=== PATIENT | female | born 1985 | race Caucasian/White ===

== ENCOUNTER 2018-06-01 21:50 | Emergency (ER) | payer BC, OTHER ==
[2018-06-01 21:58] VITALS: BMI 29.8
[2018-06-01 22:54] LABS: URINE APPEARANCE CLEAR; URINE BILIRUBIN NEGATIVE (<2.0 mg/dL); URINE COLOR YELLOW; URINE GLUCOSE (UA) NEGATIVE (NEGATIVE); URINE KETONE NEGATIVE (NEGATIVE); URINE LEUK ESTERASE NEGATIVE (NEGATIVE); URINE NITRITE NEGATIVE (NEGATIVE); URINE PROTEIN NEGATIVE (NEGATIVE); URINE UROBILINOGEN NEGATIVE mg/dL (0.2-1.0)
[2018-06-01 23:36] VITALS: BP 120/69; TEMP 98.6
[2018-06-01 23:44] VITALS: PULSE 104
== END 2018-06-01 23:10 | disposition home or self-care (01) ==
LOC: JER 21:50
DX: O26.892 Other specified pregnancy related conditions, second trimester (principal); Z3A.25 25 weeks gestation of pregnancy
CPT/HCPCS: 81003; 99281-25

== ENCOUNTER 2018-09-21 17:40 | Inpatient (IN) | payer BC, OTHER ==
[2018-09-21 18:39] VITALS: BMI 34.0
[2018-09-21] MEDS ORDERED: TUBERCULIN PPD 5 TU/0.1ML SYRINGE (IN PATIENT USE ONLY) ID ONE (19:00)
[2018-09-21 19:34] LABS: BASO % 0.2 % (0-2.0); EOS % 0.9 % (0-4.5); HEMATOCRIT 34.2 % (32.4-45.2); LYMPH % 25.5 % (8-40); MCH 29.4 pg (25.7-33.7); MEAN PLT VOLUME 8.6 fl (7.5-11.1); MONO % 5.1 % (3.8-10.2); NEUT % 68.3 % (42.8-82.8); PLATELET COUNT 275 K/MM3 (134-434); RBC 4.07 M/mm3 (3.60-5.2); RDW 15.6 % (11.6-15.6); WHITE BLOOD COUNT 7.8 K/mm3 (4.0-10.0)
[2018-09-21 20:05] LABS: ANION GAP 9 MMOL/L (8-16); BLOOD UREA NITROGEN 9 mg/dL (7-18); CALCIUM 8.3 mg/dL (8.5-10.1); CHLORIDE 104 mmol/L (98-107); CO2 24 mmol/L (21-32); CREATININE 0.5 mg/dL (0.55-1.3); GLUCOSE,RANDOM 95 mg/dL (74-106); POTASSIUM 4.1 mmol/L (3.5-5.1); SODIUM 137 mmol/L (136-145)
[2018-09-21 20:24] LABS: INR 0.88 (0.83-1.09); PROTHROMBIN TIME (PATIENT) 10.4 SEC (9.7-13.0)
[2018-09-21] MEDS ORDERED: BUTORPHANOL TARTRATE 1 MG/ML VIAL IVPB ONE (21:32)
[2018-09-21] MEDS ORDERED: DINOPROSTONE 10 MG VAGINAL SUPPOSITORY VG ONE (21:34)
--- NOTE | 2018-09-21 21:40 | HP ---
Past Medical History - Primary Care Physician PCP:: Abeba Tavarez - Admission History Source: Patient Limitations to Obtaining History: No Limitations - Past Medical History ...: 1 ...Para: 0 ...Term: 0 ...: 0 ...Spon : 0 ...Induced : 0 ...Multiple Gestation: 0 ...LMP: 12/05/17 ... Weeks Gestation by Dates: 41.3 ...EDC by Dates: 09/11/18 ...EDC by Sono: 09/11/18 - Past Surgical History Past Surgical History: Yes: None Hx Myomectomy: No Hx Transabdominal Cerclage: No - Smoking History Smoking history: Never smoked Have you smoked in the past 12 months: No - Alcohol/Substance Use Hx Alcohol Use: No History of Substance Use: reports: None - Social History Usual Living Arrangement: Yes: With Spouse History of Recent Travel: No Home Medications - Allergies Allergies/Adverse Reactions: Allergies Allergy/AdvReac Type Severity Reaction Status Date / Time No Known Allergies Allergy Verified 09/21/18 18:06 - Home Medications Home Medications: Ambulatory Orders Vits96/Iron Fum/Folic [ Tablet] 1 each PO DAILY 09/21/18 Review of Systems - Review of Systems Constitutional: reports: No Symptoms Eyes: reports: No Symptoms HENT: reports: No Symptoms Neck: reports: No Symptoms Cardiovascular: reports: No Symptoms Respiratory: reports: No Symptoms Gastrointestinal: reports: No Symptoms Genitourinary: reports: No Symptoms Breasts: reports: No Symptoms Reported Musculoskeletal: reports: No Symptoms Integumentary: reports: No Symptoms Neurological: reports: No Symptoms Endocrine: reports: No Symptoms Hematology/Lymphatic: reports: No Symptoms Psychiatric: reports: No Symptoms Physical Exam - Maternity Vital Signs: Vital Signs Temperature 97.9 F 09/21/18 18:00 Pulse Rate 98 H 09/21/18 18:00 Respiratory Rate 18 09/21/18 18:00 Blood Pressure 126/79 09/21/18 18:00 O2 Sat by Pulse Oximetry (%) Constitutional: Yes: Well Nourished, No Distress Neck: Yes: WNL Cardiovascular: Yes: WNL, Regular Rate and Rhythm Lungs: Clear to auscultation Breast(s): Yes: WNL - Abdominal Exam/OB Fundal Height: 41 Number of Fetuses: Single Presentation: Vertex Contractions: No Monitor Mode: External Category: I Decelerations: None - Vaginal Exam/OB Dilatation (cm): 1 cm Effacement (%): 70 Amniotic Membrane Status: Intact Station: -1 - Physical Exam Musculoskeletal: Yes: WNL Extremities: Yes: WNL Psychiatric: Yes: WNL, Alert, Oriented - Labs Lab Results: CBC, BMP 09/21/18 19:00 09/21/18 19:00 Hemorrhage Risk Assessment - Risk Factors Risk Score: 1 Risk Level: Medium Risk Problem List - Problems (1) Post-dates Code(s): O48.0 - POST-TERM (2) 41 weeks gestation of Code(s): Z3A.41 - 41 WEEKS GESTATION OF Assessment/Plan IUP at 41 weeks postdates Plan cervidil
[2018-09-21] MEDS: ELECTROLYTE-148 SOLN 1,000 ML IV SCH (22:00)
[2018-09-22] MEDS: ELECTROLYTE-148 SOLN 1,000 ML IV SCH ×5 (01:00→17:38)
[2018-09-22] MEDS ORDERED: BUTORPHANOL TARTRATE 1 MG/ML VIAL ONE ×2 (02:34)
[2018-09-22] MEDS ORDERED: PROMETHAZINE HCL 25 MG/1 ML VIAL ONE (02:34)
[2018-09-22] MEDS ORDERED: PROMETHAZINE HCL 25 MG/1 ML VIAL IVPB ONE (02:45)
[2018-09-22] MEDS ORDERED: AMPICILLIN SODIUM 2 GM VIAL ONE (02:48)
[2018-09-22] MEDS ORDERED: AMPICILLIN - 2 GM in SODIUM CHLORIDE 100 ML IVPB ONE (03:00)
[2018-09-22] MEDS ORDERED: AMPICILLIN SODIUM 1 GM VIAL ONE ×5 (06:08→23:12)
[2018-09-22] MEDS: AMPICILLIN - 1 GM in SODIUM CHLORIDE 100 ML IVPB SCH ×5 (06:38→23:00)
[2018-09-22] MEDS ORDERED: FENTANYL/BUPIVACAINE/NS/PF - PCEA - 50 ML DISP.SYRIN EP ONE ×3 (10:31→21:05)
--- NOTE | 2018-09-22 10:55 | PN ---
Ante-Partal Exam - Subjective Subjective: Pt uncomfortable with contractions, desires epidural. Vital Signs: Vital Signs Temperature 98.4 F 09/22/18 10:00 Pulse Rate 78 09/22/18 10:00 Respiratory Rate 20 09/22/18 10:00 Blood Pressure 125/79 09/22/18 10:00 O2 Sat by Pulse Oximetry (%) Bleeding: No Headache: No Visual changes: No Right upper quadrant pain: No Pain (scale 1-10): 9 - Contractions Contractions: Yes Regularity: Regular Intensity: Moderate Monitor Mode: External - Exam during Labor Heart Rate: 155 Variability: Moderate Category: I Monitor Decelerations: None Exam: Vaginal Dilatation (cm): 1-2 Effacement (%): 50 Amniotic Membrane Status: Intact (exam per nursing staff) Station: -3 - Assessment/Plan Assessment/Plan: To get epidural will start pitocin after epidural AROM later today continue active management/IOL
[2018-09-22] MEDS ORDERED: SODIUM CHLORIDE 100 ML IVPB ONE ×3 (11:14→16:53)
[2018-09-22] MEDS ORDERED: OXYTOCIN 30 UNITS in 0.9% NS 30 UNIT/500 ML INFUS.BAG IVPB ONE (11:15)
[2018-09-22] MEDS ORDERED: OXYTOCIN 30 UNITS in 0.9% NS 30 UNIT/500 ML INFUS.BAG IVPB SCH (11:15)
[2018-09-22] MEDS: FENTANYL/BUPIVACAINE/NS/PF - PCEA - 50 ML DISP.SYRIN EP SCH ×2 (13:15→17:30)
[2018-09-22] MEDS ORDERED: NALOXONE HCL 0.4 MG/ML VIAL IVPUSH PRN (13:28)
--- NOTE | 2018-09-22 19:54 | PN ---
Ante-Partal Exam - Subjective Subjective: Pt comfortable with epidural. Vital Signs: Vital Signs Temperature 98.3 F 09/22/18 18:00 Pulse Rate 76 09/22/18 19:00 Respiratory Rate 09/22/18 19:00 Blood Pressure 131/82 09/22/18 19:00 O2 Sat by Pulse Oximetry (%) 100 09/22/18 19:00 Bleeding: Yes Bleeding Description: Mild (consistent with bloody show) Headache: No Visual changes: No Right upper quadrant pain: No - Contractions Contractions: Yes Regularity: Regular - Exam during Labor Heart Rate: 150 Variability: Moderate Category: I Exam: Vaginal Dilatation (cm): 4.5 Effacement (%): 90 Amniotic Membrane Status: Ruptured (AROm for blood tinged fluid) Presentation: Vertex Station: -1 - Assessment/Plan Assessment/Plan: IOL for late term continue pitocin ampicillin for GBS AROM at this exam
[2018-09-23] MEDS ORDERED: LIDO 2%/EPI 1:200000 PRESRVFRE (20 ML SDVIAL) ONE (00:07)
--- NOTE | 2018-09-23 00:35 | PN ---
Ante-Partal Exam - Subjective Subjective: Pt comfortable, rupesh every 2 minutes. Vital Signs: Vital Signs Temperature 98.0 F 09/23/18 00:00 Pulse Rate 76 09/22/18 23:00 Respiratory Rate 09/22/18 23:00 Blood Pressure 131/82 09/22/18 23:00 O2 Sat by Pulse Oximetry (%) 100 09/22/18 23:00 Bleeding: Yes Bleeding Description: Mild Headache: No Visual changes: No Right upper quadrant pain: No - Contractions Contractions: Yes Regularity: Regular Intensity: Mod/Strong - Exam during Labor Heart Rate: 155 Variability: Moderate Category: I Monitor Decelerations: None Exam: Vaginal Dilatation (cm): 4 Effacement (%): 90 Amniotic Membrane Status: Ruptured Presentation: Vertex Station: -1 - Assessment/Plan Assessment/Plan: No cervical change, will reassess in a few hours, if no progress will plan for delivery. anesthesia and nursing aware
[2018-09-23] MEDS ORDERED: FENTANYL/BUPIVACAINE/NS/PF - PCEA - 50 ML DISP.SYRIN EP ONE ×2 (00:41→04:09)
[2018-09-23] MEDS: ELECTROLYTE-148 SOLN 1,000 ML IV SCH (01:10)
[2018-09-23] MEDS: AMPICILLIN - 1 GM in SODIUM CHLORIDE 100 ML IVPB SCH (03:00)
[2018-09-23] MEDS ORDERED: AMPICILLIN SODIUM 1 GM VIAL ONE (03:51)
--- NOTE | 2018-09-23 04:32 | PN ---
Ante-Partal Exam - Subjective Subjective: Pt comfortable. FHR with good variability but now in the 170s for the last 20 minutes. Vital Signs: Vital Signs Temperature 97.9 F 09/23/18 04:00 Pulse Rate 82 09/23/18 03:30 Respiratory Rate 09/23/18 03:30 Blood Pressure 130/76 09/23/18 03:30 O2 Sat by Pulse Oximetry (%) 100 09/23/18 03:30 Bleeding: No Headache: No Visual changes: No Right upper quadrant pain: No - Contractions Contractions: Yes Regularity: Regular Intensity: Strong - Exam during Labor Heart Rate: 170 Variability: Moderate Category: II Exam: Vaginal Dilatation (cm): 5 Effacement (%): 90 Amniotic Membrane Status: Ruptured Presentation: Vertex Station: -1 - Assessment/Plan Assessment/Plan: Pt with no cervical change will stop pitocin and plan for delivery once anesthesia available pt aware of plan
--- NOTE | 2018-09-23 05:29 | PN ---
Ante-Partal Exam - Subjective Subjective: Continued tachycardia. Vital Signs: Vital Signs Temperature 98.7 F 09/23/18 05:00 Pulse Rate 76 09/23/18 05:00 Respiratory Rate 09/23/18 05:00 Blood Pressure 120/75 09/23/18 05:00 O2 Sat by Pulse Oximetry (%) 100 09/23/18 05:00 Bleeding: No Headache: No Visual changes: No Right upper quadrant pain: No - Contractions Contractions: No - Exam during Labor Heart Rate: 175 Variability: Minimal Category: II Monitor Accelerations: Absent Exam: Vaginal Dilatation (cm): 5 - Assessment/Plan Assessment/Plan: Plan for delivery anesthesia and nursing staff aware consents signed R/B/A discussed hernandez in place SCDs
[2018-09-23] MEDS ORDERED: CITRIC ACID/SODIUM CITRATE 30 ML UNIT-DOSE CUP PO ONE (05:30)
[2018-09-23] MEDS ORDERED: METHYLERGONOVINE MALEATE 0.2 MG/1 ML AMP IM PRN (05:35)
[2018-09-23] MEDS ORDERED: IBUPROFEN 800 MG/8 ML IJ IVPB PRN (05:35)
[2018-09-23] MEDS ORDERED: oxyCODONE HCL 5 MG TABLET PO PRN ×2 (05:35)
[2018-09-23] MEDS ORDERED: PHENYLEPHRINE HCL 10 MG/1 ML SINGLE DOSE VIAL ONE (05:57)
[2018-09-23] MEDS ORDERED: ceFAZolin SODIUM 1 GM VIAL ONE (05:57)
[2018-09-23] MEDS ORDERED: MIDAZOLAM HCL 2 MG/2 ML SINGLE DOSE VIAL ONE (06:08)
[2018-09-23] MEDS ORDERED: KETOROLAC TROMETHAMINE 30 MG/1 ML VIAL ONE (06:14)
[2018-09-23] MEDS ORDERED: OXYTOCIN 10 UNITS/ML VIAL ONE (06:27)
[2018-09-23 06:36] LABS: VENOUS PC02 42.5 mmHg (38-52); VENOUS PH 7.35 (7.32-7.42)
[2018-09-23 06:37] LABS: ARTERIAL BLD GAS O2 SATURATION 18.8 % (90-98.9); ARTERIAL BLOOD GAS PCO2 56.2 mmHg (35-45); ARTERIAL BLOOD GAS PO2 16.7 mmHg (80-100); ARTERIAL BLOOD GAS pH 7.28 (7.35-7.45)
[2018-09-23 06:38] LABS: ARTERIAL BLOOD GAS BASE EXCESS -2.2 meq/l (-2-2)
[2018-09-23] MEDS ORDERED: morphine SULFATE/Preservative Free 0.5 MG/ML (1cc Syringe) EP ONE (07:00)
[2018-09-23] MEDS ORDERED: ONDANSETRON 4 MG/2 ML VIAL IVPUSH PRN (07:00)
[2018-09-23] MEDS ORDERED: OXYTOCIN 20 UNITS in 0.9% NS 20 UNIT/1,000 ML INFUS.BAG IV ONE (07:54)
[2018-09-23] MEDS: OXYTOCIN 20 UNITS in 0.9% NS 20 UNIT/1,000 ML INFUS.BAG IV SCH ×2 (08:15→23:30)
[2018-09-23] MEDS: FERROUS SO4 325 MG TABLET (FP) PO SCH ×2 (10:26→21:23)
--- NOTE | 2018-09-23 19:14 | OP ---
Operative Note - Note: Operative Date: 09/23/18 Pre-Operative Diagnosis: arrest of dilation, tachycardia Operation: primary low transverse delivery Findings: normal b/l tubes and ovaries Post-Operative Diagnosis: Same as Pre-op Surgeon: Abeba Tavarez Drawing In Machine Tender: Darinel Cotto Anesthesiologist/NET DEVELOPER ARCHITECT: Nela Adler Anesthesia: Epidural Specimens Removed: placenta Estimated Blood Loss (mls): 700 Operative Report Dictated: Yes
--- NOTE | 2018-09-23 19:15 | PN ---
Delivery - Delivery Section: Primary, Low Flap Transverse Type of Anesthesia: Epidural, Spinal Episiotomy/Laceration: None EBL (cc): 700 Delivery, Single - Stages of Labor Date 1st Stage Initiatied: 09/22/18 Time 1st Stage Initiated: 02:30 Date of Delivery: 09/23/18 Time of Delivery: 06:05 Time Placenta Delivered: 06:06 Placenta: Yes: Manual Removal - Condition of Electric Motor Winder/Central Sterilization Technician Present: Yes Name: Sayra Nails Gender: Female Weight: 8 lb 2 oz Position: Left, OT Total Hours ROM (Hrs/Mins): 10hrs 21min - 1 Minute Total Score: 9 5 Minutes Total Score: 9 - [place] Feeding Plan Initial Plan: Exclusive throughout hospitalization
[2018-09-24] MEDS ORDERED: BISACODYL 10 MG SUPP.RECT RC PRN (05:36)
[2018-09-24 06:10] LABS: BASO % 0.5 % (0-2.0); EOS % 1.1 % (0-4.5); HEMATOCRIT 24.1 % (32.4-45.2); HEMOGLOBIN 7.9 GM/dL (10.7-15.3); LYMPH % 24.3 % (8-40); MCH 28.1 pg (25.7-33.7); MCHC 32.7 g/dl (32.0-36.0); MEAN CELL VOLUME 85.9 fl (80-96); MEAN PLT VOLUME 7.5 fl (7.5-11.1); MONO % 6.5 % (3.8-10.2); NEUT % 67.6 % (42.8-82.8); PLATELET COUNT 197 K/MM3 (134-434); RBC 2.81 M/mm3 (3.60-5.2); RDW 16.5 % (11.6-15.6); WHITE BLOOD COUNT 10.5 K/mm3 (4.0-10.0)
--- NOTE | 2018-09-24 08:28 | PN ---
Progress Note (short form) - Note Progress Note: Post op day#1.S/P C Section under epidural anesthesia with duramorph uneventful.Patient stable and c/o some pain for which she is on medication.No any anesthesia related problem.Patient Dc from the anesthesia care.
--- NOTE | 2018-09-24 09:17 | PN ---
Post Progress Note - Subjective Subjective: Pt seen/evaluated. Doing well. OOB to chair. Tolerating regular diet. Pain controlled with PO pain meds. ambulating, voiding. Type of Delivery: Primary C/S Vital Signs: Vital Signs Temperature 97.5 F L 09/24/18 08:18 Pulse Rate 77 09/24/18 08:18 Respiratory Rate 20 09/24/18 08:18 Blood Pressure 113/76 09/24/18 08:18 O2 Sat by Pulse Oximetry (%) 96 09/23/18 08:00 Uterus: Yes: Fundus Firm Incision: Yes: Dressing dry and intact Abdomen/GI: Yes: Abdomen soft, Passing flatus, Tolerating PO Lochia, amount: Small Extremities: Yes: Calves non-tender Perineum: Yes: Intact Activity: Ambulating - Labs Labs: CBC WBC 10.5 K/mm3 (4.0-10.0) H 09/24/18 05:56 RBC 2.81 M/mm3 (3.60-5.2) L 09/24/18 05:56 Hgb 7.9 GM/dL (10.7-15.3) L 09/24/18 05:56 Hct 24.1 % (32.4-45.2) L D 09/24/18 05:56 MCV 85.9 fl (80-96) 09/24/18 05:56 MCH 28.1 pg (25.7-33.7) 09/24/18 05:56 MCHC 32.7 g/dl (32.0-36.0) 09/24/18 05:56 RDW 16.5 % (11.6-15.6) H 09/24/18 05:56 Plt Count 197 K/MM3 (134-434) D 09/24/18 05:56 MPV 7.5 fl (7.5-11.1) D 09/24/18 05:56 Absolute Neuts (auto) 7.1 K/mm3 (1.5-8.0) 09/24/18 05:56 Neutrophils % 67.6 % (42.8-82.8) 09/24/18 05:56 Lymphocytes % 24.3 % (8-40) 09/24/18 05:56 Monocytes % 6.5 % (3.8-10.2) 09/24/18 05:56 Eosinophils % 1.1 % (0-4.5) 09/24/18 05:56 Basophils % 0.5 % (0-2.0) 09/24/18 05:56 Nucleated RBC % 0 % (0-0) 09/24/18 05:56 Problem List - Problems (1) delivery delivered Code(s): O82 - ENCOUNTER FOR DELIVERY WITHOUT INDICATION (2) Anemia Code(s): D64.9 - ANEMIA, UNSPECIFIED Assessment/Plan Doing well post op regular diet encourage ambulation repeat CBC this evening routine care
[2018-09-24] MEDS: FERROUS SO4 325 MG TABLET (FP) PO SCH ×2 (09:36→21:32)
[2018-09-24] MEDS: SIMETHICONE 80 MG TAB.CHEW (FP) PO PRN (10:50)
[2018-09-24] MEDS: IBUPROFEN 600 MG TABLET (FP) PO PRN (10:51)
[2018-09-24] MEDS: ACETAMINOPHEN 325 MG TABLET (FP) PO PRN (10:51)
--- NOTE | 2018-09-24 14:04 | OP ---
DATE OF OPERATION: 09/23/2018 PREOPERATIVE DIAGNOSIS: Aggressive dilatation, tachycardia, single intrauterine at 41 weeks' gestation. POSTOPERATIVE DIAGNOSIS: Aggressive dilatation, tachycardia, single intrauterine at 41 weeks' gestation. PROCEDURE: Primary low transverse section. SURGEON: Abeba Tavarez DO STEAM AND GAS TURBINE ASSEMBLER: EZEQUIEL Castro ANESTHESIA: Epidural by Dr. Nela Adler ESTIMATED BLOOD LOSS: 700 mL. SPECIMENS: Placenta. COMPLICATIONS: None. DISPOSITION: Stable to recovery area. BRIEF HISTORY AND PROCEDURE: The patient is a 32-year-old female who had been admitted to labor and delivery for induction of labor secondary to late term. The patient was 41 weeks 3 days upon admission. The patient did receive Cervidil induction agent as well as Pitocin and an epidural throughout her induction process. On the water valve repairer of September 23, 2018, the patient was examined and found to have made minimal change throughout the morning, and the heart rate was becoming tachycardic. At this point, it was recommended to proceed with a primary section. The patient was counseled on the options. Risks, benefits, and alternatives were discussed. The patient did sign a consent form then the patient was taken back to the operating room and placed in the dorsal supine position. A Lemus catheter had been placed previously under sterile conditions, which was used for the procedure, and she was prepped and draped in the usual sterile fashion. A hard time-out was performed. A Pfannenstiel skin incision was created in the skin with a scalpel and carried to the underlying layer of rectus fascia sharply. The fascia was incised on either side of the midline sharply, and a fascial incision was carried in a superolateral direction sharply. The fascia was tented upward, and dissected off the underlying layer of rectus muscle sharply. Musculature was identified and laterally, and the peritoneum was entered bluntly to allow for adequate room for delivery. A bladder blade was inserted to protect the bladder, and a transverse incision was created in the lower uterine segment with a scalpel and carried in a superolateral direction bluntly. The infant was delivered without difficulty. Bilateral shoulders were delivered with ease along with the remainder of the infant. The infant was taken right to the warmer to be assessed by the Neonatology staff. Next, the placenta was delivered with a 3-vessel cord intact. It was manually extracted from the uterus and sent to Pathology for evaluation. The uterus was exteriorized from the abdomen and inspected and cleared of all amniotic membrane and debris with a dry lap sponge. The hysterotomy was reapproximated in a double-layered closure using 1 Vicryl in a running lock fashion, second layer being 0 Biosyn in a running fashion. Excellent hemostasis was achieved. Bilateral tubes and ovaries were inspected and noted to be normal. The posterior cul-de-sac was suctioned. The uterus was placed back in the abdomen. The hysterotomy was again noted to be hemostatic. The peritoneum was reapproximated using 3-0 chromic in a running fashion. The musculature was reapproximated in 2 interrupted sutures using 2-0 chromic. The fascia was reapproximated using 1 Vicryl in a running fashion. The skin was reapproximated in subcuticular fashion using 3-0 Vicryl, and Steri-Strips were applied. The patient tolerated the procedure well and is recovering in stable condition after the procedure in the PACU area. ABEBA TAVAREZ DO /[id number]
[2018-09-24 19:09] LABS: BASO % 0.2 % (0-2.0); HEMATOCRIT 22.7 % (32.4-45.2); HEMOGLOBIN 7.9 GM/dL (10.7-15.3); LYMPH % 22.3 % (8-40); MCH 29.4 pg (25.7-33.7); MCHC 34.8 g/dl (32.0-36.0); MEAN CELL VOLUME 84.5 fl (80-96); MEAN PLT VOLUME 7.5 fl (7.5-11.1); MONO % 7.7 % (3.8-10.2); NEUT % 68.8 % (42.8-82.8); PLATELET COUNT 235 K/MM3 (134-434); RBC 2.69 M/mm3 (3.60-5.2); RDW 16.2 % (11.6-15.6); WHITE BLOOD COUNT 9.1 K/mm3 (4.0-10.0)
[2018-09-25] MEDS: IBUPROFEN 600 MG TABLET (FP) PO PRN ×5 (05:31→20:11)
[2018-09-25] MEDS: ACETAMINOPHEN 325 MG TABLET (FP) PO PRN ×5 (05:32→20:11)
[2018-09-25] MEDS: SIMETHICONE 80 MG TAB.CHEW (FP) PO PRN ×5 (05:37→20:10)
--- NOTE | 2018-09-25 08:07 | PN ---
Progress Note (SOAP) - Subjective Chief Complaint: Pt doing well +flatus - Current Medications Current Medications: Active Medications Acetaminophen (Tylenol -) 650 mg PO Q4H PRN PRN Reason: PAIN LEVEL 1-5 Last Admin: 09/25/18 05:32 Dose: 650 mg Bisacodyl (Dulcolax Suppository -) 10 mg RC PRN PRN PRN Reason: CONSTIPATION Diphenhydramine HCl (Benadryl Injection -) 25 mg IVPUSH Q4H PRN PRN Reason: Pruritis Ferrous Sulfate (Feosol -) 325 mg PO BID ELIAZAR Last Admin: 09/24/18 21:32 Dose: 325 mg Ibuprofen (Motrin -) 600 mg PO Q4H PRN PRN Reason: PAIN LEVEL 1 - 3 Last Admin: 09/25/18 05:31 Dose: 600 mg Ibuprofen (Caldolor Injection -) 800 mg IVPB Q8H PRN PRN Reason: PAIN LEVEL 6-10 Last Admin: 09/24/18 00:25 Dose: 800 mg Methylergonovine Maleate (Methergine Injection -) 0.2 mg IM Q4H PRN PRN Reason: Excessive Bleeding (L&D) Naloxone HCl (Narcan -) 0.4 mg IVPUSH PRN PRN PRN Reason: Sedation Ondansetron HCl (Zofran Injection) 4 mg IVPUSH Q4H PRN PRN Reason: NAUSEA Oxycodone HCl (Roxicodone -) 5 mg PO Q4H PRN PRN Reason: PAIN LEVEL 4 - 6 Oxycodone HCl (Roxicodone -) 10 mg PO Q4H PRN PRN Reason: PAIN LEVEL 7 - 10 Simethicone (Mylicon -) 80 mg PO Q4H PRN PRN Reason: GAS Last Admin: 09/25/18 05:37 Dose: 80 mg - Objective Vital Signs: Vital Signs Temperature 97.8 F 09/24/18 21:36 Pulse Rate 90 09/24/18 21:36 Respiratory Rate 20 09/24/18 21:36 Blood Pressure 120/69 09/24/18 21:36 O2 Sat by Pulse Oximetry (%) 96 09/23/18 08:00 Constitutional: Yes: Well Nourished, No Distress Gastrointestinal: Yes: WNL, Soft ....Post : Yes: Uterus firm, Uterus non-tender Breast(s): Yes: WNL Musculoskeletal: Yes: WNL Peripheral Pulses WNL: No Wound/Incision: Yes: Open to air, Dressing Removed Neurological: Yes: WNL, Alert, Oriented Labs Lab Results: CBC, BMP 09/24/18 19:00 09/21/18 19:00 Problem List - Problems (1) Post-dates Code(s): O48.0 - POST-TERM (2) 41 weeks gestation of Code(s): Z3A.41 - 41 WEEKS GESTATION OF Assessment/Plan SP CS POD2 Plan OOB Continued management DC home RTO 1 week
[2018-09-25] MEDS: FERROUS SO4 325 MG TABLET (FP) PO SCH ×2 (10:00→22:23)
[2018-09-26] MEDS: SIMETHICONE 80 MG TAB.CHEW (FP) PO PRN ×2 (01:06→08:09)
[2018-09-26] MEDS: ACETAMINOPHEN 325 MG TABLET (FP) PO PRN ×2 (01:06→08:10)
[2018-09-26] MEDS: IBUPROFEN 600 MG TABLET (FP) PO PRN ×2 (01:06→08:09)
[2018-09-26 09:10] VITALS: BP 128/78; PULSE 74; TEMP 97.9
[2018-09-26 09:21] LABS: BASO % 0.4 % (0-2.0); EOS % 2.4 % (0-4.5); HEMATOCRIT 23.7 % (32.4-45.2); HEMOGLOBIN 8.1 GM/dL (10.7-15.3); LYMPH % 28.5 % (8-40); MCH 29.1 pg (25.7-33.7); MCHC 34.1 g/dl (32.0-36.0); MEAN CELL VOLUME 85.4 fl (80-96); MEAN PLT VOLUME 7.8 fl (7.5-11.1); MONO % 5.9 % (3.8-10.2); NEUT % 62.8 % (42.8-82.8); PLATELET COUNT 273 K/MM3 (134-434); RBC 2.78 M/mm3 (3.60-5.2); RDW 16.2 % (11.6-15.6); WHITE BLOOD COUNT 7.8 K/mm3 (4.0-10.0)
[2018-09-26] MEDS: FERROUS SO4 325 MG TABLET (FP) PO SCH (09:21)
--- NOTE | 2018-09-26 11:15 | DS ---
Physical Exam-TRAFFIC OR SYSTEM DISPATCHER Vital Signs: Vital Signs Temperature 97.9 F 09/26/18 09:06 Pulse Rate 74 09/26/18 09:06 Respiratory Rate 20 09/26/18 09:06 Blood Pressure 128/78 09/26/18 09:06 O2 Sat by Pulse Oximetry (%) 96 09/23/18 08:00 Constitutional: Yes: Well Nourished, No Distress Cardiovascular: Yes: WNL Respiratory: Yes: WNL Labs: CBC, BMP 09/26/18 08:30 09/21/18 19:00 Delivery - Delivery Section: Primary, Low Flap Transverse Type of Anesthesia: Epidural, Spinal Episiotomy/Laceration: None EBL (cc): 700 Delivery, Single - Stages of Labor Date 1st Stage Initiatied: 09/22/18 Time 1st Stage Initiated: 02:30 Date of Delivery: 09/23/18 Time of Delivery: 06:05 Time Placenta Delivered: 06:06 Placenta: Yes: Manual Removal - Condition of Senior Receptionist/Home Care Music Therapist Present: Yes Name: Sayra Nails Gender: Female Weight: 8 lb 2 oz Position: Left, OT Total Hours ROM (Hrs/Mins): 10hrs 21min - 1 Minute Total Score: 9 5 Minutes Total Score: 9 - [place] Feeding Plan Initial Plan: Exclusive throughout hospitalization Discharge Summary Reason For Visit: INDUCTION OF LABOR Current Active Problems 41 weeks gestation of (Acute) Anemia (Acute) delivery delivered (Acute) Post-dates (Acute) Procedures: Principal: Low transverse Section Hospital Course: Unremarkable Condition: Good - Instructions Diet, Activity, Other Instructions: Physical activity Resume your normal everyday activity as tolerated no heavy lifting or exercise until seen by your surgeon. You may walk unlimited ken of and climb stairs. You may resume driving the car when you feel safe and comfortable behind the wheel. No sexual activity as instructed. Wound care If you have a bandage, leave it on, and keep dry for 48-72 hours. After that time discard the outer bandage. If they are tapes on the skin under the out of bandage leave them in place. They will peel off in the next 7 to 10 days. Do Not Peel them off. You may shower the day after surgery. If there are tapes present on the skin, you may shower over them. Diet There are no dietary restrictions. Eat healthy, high-fiber foods. Drink 6 to 8 glasses of liquid each day. This will assist in keeping your bowels are regular. Pain management You may take Tylenol or acetaminophen or Ibuprofen (for example, Motrin, Advil etc.) from my pain prescription medication is ordered should be taken as prescribed for moderate to severe pain. Call MD for any of the following: Severe pain not relieved by medication Fever of 101 or higher Excessive bleeding or drainage on dressing Inability to urinate Disposition: HOME - Home Medications Comprehensive Discharge Medication List: Ambulatory Orders Vits96/Iron Fum/Folic [ Tablet] 1 each PO DAILY 09/21/18 Ibuprofen [Motrin -] 600 mg PO QID #28 tablet 09/26/18 Oxycodone HCl/Acetaminophen [Percocet 5-325 mg Tablet] 1 - 2 tab PO Q6H #20 tab MDD 6 09/26/18
--- NOTE | 2018-09-30 19:01 | PATH ---
Surgical Pathology Report Patient Name: JOLLY MURGUIA Med. Rec. #: [id number] /Age/Gender: 1985 (Age: 32) / F Account: [id number] Location: [facility] OBS/PATIENT CARE PROVIDER Taken: 09/23/2018 Received: 09/23/2018 Reported: 09/30/2018 Physicians: Abeba Tavarez M.D. Specimen(s) Received PLACENTA Clinical History , 41.5 weeks gestation, tachycardia, arrest of dilatation Final Diagnosis PLACENTA: THIRD TRIMESTER PLACENTA. TRIVASCULAR CORD. MEMBRANES WITH NO DIAGNOSTIC ABNORMALITIES. Electronically Signed Yanick Tolliver M.D. Gross Description The specimen is received fresh labeled placenta and is a 534 gram, 23.0 x 20.0 x 1.8 cm. placenta with attached membranes and umbilical cord. The attached membranes are translucent with focal opacities and insert marginally. The umbilical cord measures 23 cm. in length and averages 1 cm. in diameter. The cord inserts eccentrically, 8 cm. to the nearest margin. No true knots or strictures are identified. Cut surface of the umbilical cord reveals 3 vessels. The surface is sofia green with minimal fibrin deposition and appropriate caliber vessels. The maternal surface is red-brown with focal defects. Sectioning reveals red-brown, spongy parenchyma. No lesions are identified. Salesperson Sewing Machines sections are submitted in three cassettes as follows: 1- membrane rolls and umbilical cord; 2-3- full thickness sections of placenta. /09/28/2018 saudi09/28/2018
== END 2018-09-26 12:20 | disposition home or self-care (01) | DRG 788 ==
LOC: JLDR 17:40 → J3W 09-23 08:20
PROVIDERS: ADMIT Obstetrics & Gynecology; ATTEND Obstetrics & Gynecology
PROC: 3E0P7VZ Introduction of Hormone into Female Reproductive, Via Natural or Artificial Opening (ICD-10-PCS; 2018-09-21)
PROC: 10D00Z1 Extraction of Products of Conception, Low, Open Approach (ICD-10-PCS; principal; 2018-09-22)
DX: O48.0 Post-term pregnancy (principal); O76 Abnormality in fetal heart rate and rhythm complicating labor and delivery; O62.0 Primary inadequate contractions; O99.824 Streptococcus B carrier state complicating childbirth; O99.013 Anemia complicating pregnancy, third trimester; D64.9 Anemia, unspecified; Z3A.41 41 weeks gestation of pregnancy; Z37.0 Single live birth
CPT/HCPCS: 36415; 36600; 80048; 82803; 85025; 85610; 85730; 86593; 86850; 86900; 86901; 88307-TC